=== PATIENT | female | born 1995 | race Caucasian/White ===

== ENCOUNTER 2017-02-12 15:25 | Emergency (ER) | payer BC ==
[~2017-02-12] VITALS: Ht 170.2 cm; Wt 71.8 kg
[~2017-02-12 15:25] MED LIST: CLEOCIN 751500 MG/10 PO; CLEOCIN HCL300 MG PO; LORTAB ELIX0.5 MG/ML PO; NORCO 325 MG-51 TAB PO; PRELONE15 MG/5 ML PO; TILIA FE1 TAB PO
[2017-02-12 15:26] VITALS: TEMP 98.6
[2017-02-12] MEDS ORDERED: NUVARING VAG RING VG (15:31)
[2017-02-12 16:24] LABS: BASO % 0.4 % (0.0-2.0); EOS # 0.1 (0.0-0.7); EOS % 2.6 % (0-4.0); GRAN # 2.3 (1.4-6.5); GRAN % 43.3 % (42.2-75.2); HEMATOCRIT 39.7 % (37.0-47.0); HEMOGLOBIN 13.7 g/dl (12.5-16.0); LYMPH # 2.4 (1.2-3.4); LYMPH % 44.7 % (20.0-51.0); MEAN CELL VOLUME 87 fl (80.0-100.0); MEAN CORPUSCULAR HEMOGLOBIN 30 pg (27.0-31.0); MEAN CORPUSCULAR HGB CONC 35 g/dl (33.0-37.0); MEAN PLATELET VOLUME 9.8 fl (7.4-10.4); MONO # 0.5 (0.1-0.6); MONO % 8.8 % (1.7-9.3); PLATELET COUNT 239 K/mm3 (130-400); RED BLOOD COUNT 4.54 M/mm3 (4.10-5.30); REDCELL DISTRIBUTION WIDTH-CV 12.8 % (11.5-14.5); WHITE BLOOD COUNT 5.3 K/mm3 (4.8-10.8)
[2017-02-12 16:47] LABS: ADJUSTED CALCIUM 8.7 mg/dL (8.4-10.2); ALBUMIN 4.1 gm/dL (3.5-5.0); BILIRUBIN,TOTAL 0.7 mg/dL (0.0-1.0); CALCIUM 8.8 mg/dL (8.4-10.2); CREATININE, serum 0.8 mg/dL (0.52-1.25); POTASSIUM 3.6 mmol/L (3.4-5.0); TOTAL PROTEIN 7.3 gm/dL (6.4-8.2)
[2017-02-12 16:49] LABS: C-REACTIVE PROTEIN 0.5 mg/dL (0.0-0.9)
[2017-02-12 17:01] LABS: PH 5 (5-8); URINE APPEARANCE Hazy; URINE BACTERIA Rare /hpf; URINE BILIRUBIN Negative (NEGATIVE); URINE BLOOD Negative (NEGATIVE); URINE COLOR Yellow; URINE GLUCOSE Negative (NEGATIVE); URINE KETONE Negative (NEGATIVE); URINE RBC 0-2 /hpf; URINE UROBILINOGEN Negative (NEGATIVE); URINE WBC 0-2 /hpf
[2017-02-12] MEDS ORDERED: PHENERGAN 25 TA25 MG PO (19:13)
[2017-02-12] MEDS ORDERED: PREVACID SOLUTA30 M2 PO (19:13)
[2017-02-12 19:34] VITALS: BP 127/64; PULSE 58
== END 2017-02-12 19:34 | disposition home or self-care (01) ==
LOC: COL.ER 15:25
PROVIDERS: Emergency Medicine
DX: R10.11 Right upper quadrant pain (principal); Z87.448 Personal history of other diseases of urinary system; Z98.890 Other specified postprocedural states
CPT/HCPCS: C9113; J1170; J2405; J2550; J7030; J7040

== ENCOUNTER 2017-04-27 11:52 | Emergency (ER) | payer BC ==
[~2017-04-27] VITALS: Ht 170.2 cm; Wt 69.5 kg
[~2017-04-27 11:52] MED LIST changes: +NUVARING VAG RING VG; +PHENERGAN 25 TA25 MG PO; +PREVACID SOLUTA30 M2 PO
[2017-04-27 11:58] VITALS: BP 135/76; TEMP 98.7
[2017-04-27 14:08] LABS: BASO % 0.6 % (0.0-2.0); EOS # 0.2 (0.0-0.7); EOS % 2.3 % (0-4.0); GRAN # 3.4 (1.4-6.5); GRAN % 52.7 % (42.2-75.2); HEMATOCRIT 40.5 % (37.0-47.0); HEMOGLOBIN 13.8 g/dl (12.5-16.0); LYMPH # 2.4 (1.2-3.4); LYMPH % 36.6 % (20.0-51.0); MEAN CELL VOLUME 86 fl (80.0-100.0); MEAN CORPUSCULAR HEMOGLOBIN 29 pg (27.0-31.0); MEAN CORPUSCULAR HGB CONC 34 g/dl (33.0-37.0); MEAN PLATELET VOLUME 9.5 fl (7.4-10.4); MONO # 0.5 (0.1-0.6); MONO % 7.5 % (1.7-9.3); PLATELET COUNT 250 K/mm3 (130-400); REDCELL DISTRIBUTION WIDTH-CV 12.2 % (11.5-14.5); WHITE BLOOD COUNT 6.4 K/mm3 (4.8-10.8)
[2017-04-27 14:21] LABS: ALBUMIN 4.4 gm/dL (3.5-5.0); C-REACTIVE PROTEIN 0.6 mg/dL (0.0-0.9); CALCIUM 9.3 mg/dL (8.4-10.2); CREATININE, serum 0.74 mg/dL (0.52-1.25); POTASSIUM 3.9 mmol/L (3.4-5.0); TOTAL PROTEIN 7.4 gm/dL (6.4-8.2)
[2017-04-27] MEDS ORDERED: FLAGYL500 MG PO ×2 (16:16→16:29)
[2017-04-27] MEDS ORDERED: CIPRO 500MG TA500 MG PO (16:29)
[2017-04-27 16:36] VITALS: PULSE 68
== END 2017-04-27 16:40 | disposition home or self-care (01) ==
LOC: COL.ER 11:52
PROVIDERS: Nurse Practitioner
DX: K52.9 Noninfective gastroenteritis and colitis, unspecified (principal); Z90.89 Acquired absence of other organs
CPT/HCPCS: J2270; J2405; J2550; J7030; Q9967